=== PATIENT | male | born 1980 ===

== ENCOUNTER 2023-06-02 19:58 | Emergency (ER) | payer OTHER, SELFPAY ==
--- NOTE | ~2023-06-02 | CT_ITS ---
EXAMINATION: CT ABDOMEN AND PELVIS WITH CONTRAST CLINICAL INFORMATION: Left lower quadrant pain and hematochezia COMPARISON: None available. TECHNIQUE: Multidetector volumetric images were obtained from the superior aspect of the liver through the pubic symphysis following administration 85 mL of Omnipaque 350 intravenous contrast. Sagittal and coronal reformatted images were obtained on the technologist's workstation. Oral contrast: No This CT examination was performed using dose optimization techniques as appropriate, variously including the following: *Automated exposure control *Adjustment of mA and/or kV according to patient size (this includes techniques or standardized protocols for targeted exams where dose is matched to indication/reason for exam; i.e. extremities or head) *Use of iterative reconstruction technique DLP: 685 mGy-cm FINDINGS: LUNG BASES: The visualized lung bases are unremarkable. LIVER, GALLBLADDER, AND BILIARY TREE: The liver is normal in size, shape, and attenuation. No focal hepatic lesion or biliary ductal dilatation is present. The gallbladder is unremarkable with no evidence of radiopaque gallstones, gallbladder wall thickening, or obvious pericholecystic inflammatory changes. PANCREAS: Unremarkable. SPLEEN: Unremarkable. ADRENAL GLANDS: Unremarkable. KIDNEYS AND URETERS: The kidneys are normal in size, shape, and attenuation. No hydronephrosis, hydroureter, or calculi seen. No perinephric stranding. BLADDER: Unremarkable. GASTROINTESTINAL TRACT: Scattered colonic diverticula. No evidence of diverticulitis. Normal appendix. Stomach and small bowel unremarkable. ABDOMINAL WALL: No significant hernia is appreciated. LYMPH NODES: Normal. VASCULAR: Unremarkable. PELVIC VISCERA: Unremarkable. OSSEOUS STRUCTURES: No acute or suspicious osseous abnormalities. Chronic mild superior endplate compression deformity anteriorly at L5. Moderate loss of disc space height at L5-S1. CT/CT abdomen pelvis w IV con IMPRESSION: * No acute findings within the abdomen or pelvis to explain the patient's symptomatology. * Scattered colonic diverticula without evidence of diverticulitis.
[2023-06-02 20:31] VITALS: BP 145/89; PULSE 92; RESP 18; TEMP 36.8; O2SAT 98; BMI 30.5
--- NOTE | 2023-06-02 20:33 | ED_ITS ---
HPI - General Adult General Chief complaint: Abdominal Pain Stated complaint: sharp pain in stomach Time Seen by Provider: 06/02/23 22:58 Source: patient Mode of arrival: ambulatory Limitations: no limitations History of Present Illness HPI narrative: Patient is a 42-year-old male who presents emergency department for evaluation of abdominal pain. Onset of symptoms was 4 days ago over the epigastrium radiating from the left upper quadrant to the left lower quadrant. It is sharp in nature. Denies any exacerbating or alleviating factors. Additionally reports bright red blood the with straining for bowel movements, denies any black stool. Denies any known history of hemorrhoids. Reports similar pain in the past approximately 1 year ago, does not recall etiology of this. Denies fevers, chills, chest pain, shortness of breath, nausea, vomiting, for appetite, recent unintentional weight loss, genitourinary symptoms. Related Data Allergies Allergy/AdvReac Type Severity Reaction Status Date / Time No Known Allergies Allergy Verified 06/02/23 20:36 Review of Systems Review of Systems: Constitutional : No Weight loss, No Fever, No Chills ENT/Mouth :? No sore throat, No Rhinorrhea Eyes: No Swelling, No Redness Cardiovascular : No Chest Pain, No SOB, No Edema Respiratory : No Cough, No Sputum, No Wheezing Gastrointestinal : No Nausea, no Vomiting, no Diarrhea, positive abdominal pain, positive Hematochezia, No Melena Genitourinary : No Dysuria, No Urinary Frequency, No Hematuria, No Urgency? Musculoskeletal : No joint pain, No Myalgias, No Joint Swelling Skin : No Skin Lesions, No rash Neuro : No Weakness, No Numbness, No Dizziness, No Headache Psych : No Anxiety/Panic, No Depression Heme/Lymph: No Bruising, No Lymphadenopathy Endocrine : No Polyuria, No Polydipsia Yes all other systems are reviewed and are negative [facility] Past Medical History Attestation statement: The following information was validated with the patient. Source: old records reviewed Social History Social History Smoked in Last 30 Days: Yes Use of substances other than those prescribed or required for medical reasons: Yes Substance Use Type: Marijuana Advance Directives: No Advance Directives Information Provided: Yes Physical Exam ED Vital Signs: Vital Signs - 24 hr 06/02/23 20:31 06/03/23 00:33 Temperature 98.2 F 97.9 F Pulse Rate 92 71 Respiratory Rate 18 18 Blood Pressure 145/89 H 118/62 Pulse Oximetry 98 97 Oxygen Delivery Method Room Air Room Air BMI result Body Mass Index 30.5 Appearance: Alert.?Oriented to person, place and time. No acute distress.?Normal affect. Eyes: Pupils equal, round and reactive to light.? ENT: Pharynx normal.?? Neck: Normal inspection.? Neck supple.?? CVS: Heart sounds normal. Normal heart rate and rhythm.? Pulses normal.?? Respiratory: No respiratory distress.? Lung sounds clear to auscultation bilaterally?? Abdomen: Soft and with mild left upper and lower quadrant tenderness upon palpation Normoactive bowel sounds. 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 Skin: Skin warm and dry.? Normal skin color.? Extremities: No lower extremity edema.? Neuro: Moves all extremities spontaneously. Sensation intact bilaterally. No focal neuro deficits. Ambulates with normal steady gait. Course Course Course Narrative: This is an RME: Additional HPI, ROS, PE not included below will be deferred to primary provider. This is a [id number] with no medical history, presenting to the emergency department with complaints of sharp abdominal pain x 4 days. TTP in epigastrium and LUQ. Also reports blood in bowel movements. No nausea, vomiting. VSS. Plan: labs ordered. will defer imaging until seen by primary provider in the main er. Medications Administered Discontinued Medications Generic Name Dose Route Start Last Admin Trade Name Freq PRN Reason Stop Dose Admin Sodium Chloride 1,000 mls @ 999 mls/hr 06/02/23 23:15 06/03/23 00:49 Ns IV 06/03/23 00:15 Infused .Q1H1M MEGAN Infusion Iohexol 85 ml 06/02/23 23:59 06/02/23 23:59 Iohexol 350 Mg/Ml 100 Ml Infus..Btl IV 06/03/23 00:00 85 ml ONCE ONE Administration Medical Decision Making Medical Decision Making MDM Narrative: Patient is a 42-year-old male presents emergency department for abdominal pain and bright red blood per rectum. At the time my examination he is overall well- appearing. Mild tenderness upon palpation of the left abdomen without rigidity or guarding. He reports his abdominal pain has actually improved since his arrival to the emergency department. Examination of the rectum revealing a external nonthrombosed hemorrhoid present with no active bleeding, no fissures which is likely the etiology of the right red blood. CBC reveals no leukocytosis, no anemia. Baseline thrombocytopenia. CMP is overall unremarkable, lipase is within normal limits, no right upper quadrant or epigastric tenderness upon palpation, lower suspicion for acute biliary or pancreatic etiology at this time. CT of the abdomen and pelvis reveals no acute abnormality, presence of diverticulosis, not consistent with appendicitis, diverticulitis, colitis, or obstruction. Discussed bland diet, outpatient follow-up with primary care provider within 3 days. Reviewed worrisome signs and symptoms that would warrant re-evaluation in the emergency department. All questions answered. Stable for discharge. Differential Diagnosis Differential Diagnoses: The differential diagnosis associated with the presentation includes (As noted above) Admission/Observation Consideration of admission/observation: Escalation of care including admission/observation considered (I considered admission for abdominal pain, see narrative above) Lab Data MDM Lab Attestation statement: I reviewed the patient's lab results. (See narrative above) 06/02/23 20:53 06/02/23 20:53 Labs: Lab Results 06/02/23 06/02/23 Range/Units 20:53 20:53 WBC 5.7 (4.8-10.8) X10*3/uL RBC 4.75 (4.60-5.80) X10*6/uL Hgb 15.2 (14.0-18.0) g/dl Hct 43.3 (42.0-52.0) % MCV 91.2 (80.0-98.0) fL MCH 32.0 (27.0-33.0) pg MCHC 35.1 (31.0-36.0) g/dl RDW 12.7 (11.0-16.0) % Plt Count 147 L (160-400) X10*3/uL MPV 9.8 (9.4-12.4) fL Immature Gran % (Auto) 0.2 (0.0-0.4) % Neut % (Auto) 49.1 (45-73) % Lymph % (Auto) 41.5 H (20-40) % [place] % (Auto) 6.5 (2-11) % Eos % (Auto) 2.3 (0-4) % Baso % (Auto) 0.4 (0-2) % Lymph # (Auto) 2.4 (1.2-4.9) X10*3/uL [place] # (Auto) 0.4 (0.1-1.2) X10*3/uL Eos # (Auto) 0.1 (0.0-0.4) X10*3/uL Baso # (Auto) 0.0 (0.0-0.2) X10*3/uL Abs Immat Gran (auto) 0.01 (0.00-0.03) X10*3/uL Absolute Neuts (auto) 2.8 (2.0-8.3) x10*3/uL Absolute Nucleated RBC 0.000 (0.0-0.012) X10*3/uL Nucleated RBC % (auto) 0.0 (0.0-0.2) /100WBC Sodium 142 (135-145) mmol/L Potassium 4.0 (3.3-5.1) mmol/L Chloride 111 H (96-108) mmol/L Carbon Dioxide 20 L (22-29) mmol/L Anion Gap 15 (12-20) BUN 19 H (9-16) mg/dL Creatinine 1.01 (0.5-1.4) mg/dL Estim Creat Clear Calc 109.8 Estimated GFR > 60 Random Glucose 99 (60-115) mg/dL Calcium 9.2 (8.4-10.2) mg/dL Total Bilirubin 0.7 (0.0-1.0) mg/dL Direct Bilirubin 0.2 (0.0-0.5) mg/dL AST 18 (5-37) U/L ALT 38 (0-40) U/L Alkaline Phosphatase 62 (39-117) U/L Total Protein 7.0 (6.5-8.0) g/dL Albumin 4.3 (3.5-5.0) g/dL Lipase 31 (8-78) U/L Radiology Impression Discussion of test interpretation with radiology: I have reviewed the radiologis t's reading. Radiologist Impression: CT/CT abdomen pelvis w IV con IMPRESSION: *? No acute findings within the abdomen or pelvis to explain the patient's symptomatology. *? Scattered colonic diverticula without evidence of diverticulitis. Prescription Management I considered prescription management with: Antibiotic (Likely gastroenteritis, no antibiotics at this time) Discharge Plan Discharge Clinical Impression: Gastroenteritis, Hemorrhoid Patient Disposition: Home, Self-Care Instructions: Gastroenteritis (ED), Hemorrhoids (ED) Referrals: Physician,None [Primary Care Provider] -
[2023-06-02 20:58] LABS: MANUAL DIFF FLAG NO
[2023-06-02 21:06] LABS: Basophils Percent Auto 0.4 % (0-2); Eosinophils Absolute Auto 0.1 X10*3/uL (0.0-0.4); Eosinophils Percent Auto 2.3 % (0-4); Hematocrit 43.3 % (42.0-52.0); Hemoglobin 15.2 g/dl (14.0-18.0); Imm Gran Abs Auto 0.01 X10*3/uL (0.00-0.03); Imm Gran Pct Auto 0.2 % (0.0-0.4); Lymphocytes Absolute Auto 2.4 X10*3/uL (1.2-4.9); Lymphocytes Percent Auto 41.5 % (20-40); Mean Corpuscular HGB Conc 35.1 g/dl (31.0-36.0); Mean Corpuscular Volume 91.2 fL (80.0-98.0); Mean Platelet Volume 9.8 fL (9.4-12.4); Monocytes Absolute Auto 0.4 X10*3/uL (0.1-1.2); Monocytes Percent Auto 6.5 % (2-11); Neutrophils Absolute Auto 2.8 x10*3/uL (2.0-8.3); Neutrophils Percent Auto 49.1 % (45-73); Platelet Count 147 X10*3/uL (160-400); Red Blood Count 4.75 X10*6/uL (4.60-5.80); Red Cell Distribution Width 12.7 % (11.0-16.0); White Blood Count 5.7 X10*3/uL (4.8-10.8)
[2023-06-02 21:14] LABS: Alanine Aminotransferase 38 U/L (0-40); Albumin Level 4.3 g/dL (3.5-5.0); Alkaline Phosphatase 62 U/L (39-117); Anion Gap 15 (12-20); Aspartate Amino Transferase 18 U/L (5-37); Bilirubin Direct 0.2 mg/dL (0.0-0.5); Bilirubin Total 0.7 mg/dL (0.0-1.0); Blood Urea Nitrogen 19 mg/dL (9-16); Calcium 9.2 mg/dL (8.4-10.2); Carbon Dioxide 20 mmol/L (22-29); Chloride 111 mmol/L (96-108); Creatinine Clr Calc Pharmacy 109.8; Estimated Glomerular Filt Rate > 60; Glucose Random 99 mg/dL (60-115); Lipase 31 U/L (8-78); Sodium 142 mmol/L (135-145)
[2023-06-02] MEDS: 0.9 % Sodium Chloride 1,000 ML 999 ML IV (23:29)
--- NOTE | 2023-06-02 23:40 | PC.NURSE ---
this rn placed iv 20 g in l ac. pt tolerated well. pt medicated according to mar awaiting to be taked to CT
[2023-06-02] MEDS: iohexoL 350 MG/ML 100 ML INFUS..BTL 85 ML IV (23:59)
[2023-06-03 00:33] VITALS: BP 118/62; PULSE 71; RESP 18; TEMP 36.6; O2SAT 97
[2023-06-03 01:19] VITALS: BP 116/75; PULSE 64; RESP 14; TEMP 36.6; O2SAT 98
--- NOTE | 2023-06-03 01:24 | PC.NURSE ---
pt ambulatory at discharge. iv removed. vss. pt provided wit discharge packet and work note. pt verbalized understanding of discharge plan
== END 2023-06-03 01:27 | disposition home or self-care (01) ==
PROVIDERS: Physician Assistant Medical; Emergency Provider Emergency Medicine
DX: K52.9 Noninfective gastroenteritis and colitis, unspecified (principal); K64.9 Unspecified hemorrhoids; Z79.899 Other long term (current) drug therapy
CPT/HCPCS: 36415; 74177; 80048; 80076; 83690; 85025; 96360; 99284